=== PATIENT | female | born 1955 | race Caucasian/White ===

== ENCOUNTER 2018-02-11 07:29 | Day surgery (SDC) | payer BC ==
[~2018-02-11 07:29] MED LIST: ATOR20 PO
== END 2018-02-11 22:40 | disposition home or self-care (01) ==
LOC: MOI US 07:29
DX: C80.1 Malignant (primary) neoplasm, unspecified (principal)
CPT/HCPCS: 38505; 76942; 77065; 88305; 88341; 88342; A4648; G0279

== ENCOUNTER 2018-03-25 10:49 | Day surgery (SDC) | payer BC ==
[~2018-03-25] VITALS: Ht 152.4 cm; Wt 76.8 kg
[~2018-03-25 10:49] MED LIST changes: +ATOR40TA PO; +Aspirin EC81 MG PO; +Black Cohosh540 MG PO; +MULTI VITAMIN1 EACH PO; +VITAMIN D31000 UNI1 PO
--- NOTE | 2018-03-25 11:54 | NUR ---
03/25/18 1154 Ricardo Whiting 1ST IV ATTEMPT IN LW UNSUCCESSFUL, DEE 2ND IV ATTEMPT IN LH SUCCESSFUL, DEE
--- NOTE | 2018-03-25 13:06 | NUR ---
03/25/18 1305 Felisha Weir PREP: RIGHT AND LEFT MID ABDOMEN TO CHIN, RIGHT AND LEFT AXILLA, RIGHT ARM, HAND.
--- NOTE | 2018-03-25 17:30 | NUR ---
03/25/18 1730 Gisele Pérez PT RESTING COMFORTABLY, DENIES PAIN OR NAUSEA. VSS. SATS 90'S UNTIL PT DOZES OFF, THEN DOWN IN THE HIGH 80'S. INCENTIVE SPIROMETER TEACHING DONE WITH PT DOING A GOOD RETURN DEMO AND SATS BACK UP IN THE MID 90'S. DRESSING CDI, AND DAUGHTER AT BEDSIDE ALONG WITH SISTER AND MOTHER.
== END 2018-03-25 18:00 | disposition home or self-care (01) ==
LOC: ORSCSDS 10:49
PROVIDERS: Surgery
PROC: 0HTT0ZZ Resection of Right Breast, Open Approach (ICD-10-PCS; principal; 2018-03-25 12:00)
PROC: 0HTU0ZZ Resection of Left Breast, Open Approach (ICD-10-PCS; principal; 2018-03-25 12:00)
PROC: 07B50ZX Excision of Right Axillary Lymphatic, Open Approach, Diagnostic (ICD-10-PCS; principal; 2018-03-25 12:00)
PROC: 05HN33Z Insertion of Infusion Device into Left Internal Jugular Vein, Percutaneous Approach (ICD-10-PCS; principal; 2018-03-25 12:00)
PROC: B5141ZA Fluoroscopy of Left Jugular Veins using Low Osmolar Contrast, Guidance (ICD-10-PCS; principal; 2018-03-25 12:00)
DX: C77.3 Secondary and unspecified malignant neoplasm of axilla and upper limb lymph nodes (principal); I10 Essential (primary) hypertension; E78.5 Hyperlipidemia, unspecified; E66.9 Obesity, unspecified; Z68.33 Body mass index [BMI] 33.0-33.9, adult; Z79.899 Other long term (current) drug therapy; Z79.82 Long term (current) use of aspirin
CPT/HCPCS: 77001; 88307; 88360; C1788; J0690; J1100; J1642; J1885; J2250; J2405; J3010

== ENCOUNTER 2018-04-03 16:18 | Observation (INO) | payer BC ==
[~2018-04-03] VITALS: Ht 154.9 cm; Wt 73.4 kg
--- NOTE | 2018-04-03 17:15 | NUR ---
pt arrived to unit, direct admit, via wheelchair, vss, oriented to room. pt a/0 x 4, pleasant/cooperative.
--- NOTE | 2018-04-03 17:45 | NUR ---
2 RNs unable to insert peripheral IV. PCU charge Alana to attempt peripheral with ultrasound.
--- NOTE | 2018-04-03 18:10 | NUR ---
lab unable to draw blood for cbc/bmp
--- NOTE | 2018-04-03 18:15 | NUR ---
PCU charge entry specialist Nicole will attempt insertion of power glide following giving report to night shift supervisor PCU charge
[2018-04-03 19:40] LABS: BASOPHILS ABSOLUTE AUTO 0.02 K/mm3 (0.00-0.23); BASOPHILS PERCENT AUTO 0 % (0-2); EOSINOPHILS ABSOLUTE AUTO 0.11 K/mm3 (0.00-0.68); EOSINOPHILS PERCENT AUTO 1 % (0-6); Hematocrit 35.4 % (33.0-51.0); Hemoglobin 11.5 g/dL (11.5-16.0); IMMATURE GRAN ABSOLUTE AUTO 0.06 K/mm3 (0.00-0.10); IMMATURE GRAN PERCENT AUTO 0 % (0-1); LYMPHOCYTES ABSOLUTE AUTO 1.84 K/mm3 (0.84-5.20); LYMPHOCYTES PERCENT AUTO 13 % (21-46); MONOCYTES PERCENT AUTO 11 % (4-13); Mean Corpuscular HGB 29.4 pg (26.0-34.0); Mean Corpuscular HGB Conc 32.5 g/dL (31.5-36.5); Mean Corpuscular Volume 91 fL (80-100); Mean Platelet Volume 10.3 fL (9.1-12.4); NEUTROPHILS ABSOLUTE AUTO 10.82 K/mm3 (1.96-9.15); NEUTROPHILS PERCENT AUTO 75 % (41-73); Platelet Count 208 K/mm3 (150-400); RDW Coefficient Variation 13.4 % (11.7-14.2); RDW Standard Deviation 44.5 fL (35.1-46.3); Red Blood Cell Count 3.91 M/mm3 (3.80-5.20); White Blood Cell Count 14.35 K/mm3 (4.00-11.30)
[2018-04-03 20:01] LABS: Anion Gap 8 mmol/L (6-16); Blood Urea Nitrogen 8 mg/dL (8-24); Bun/Creatinine Ratio 18.6 (12.0-20.0); CO2, Blood 26 mmol/L (21-32); Calcium, Blood 8.5 mg/dL (8.5-10.1); Chloride, Blood 100 mmol/L (98-108); Creatinine, Blood 0.43 mg/dL (0.40-1.00); Glomerular Filtration Rate >60 (60-); Glucose, Blood 95 mg/dL (70-99); Potassium, Blood 3.6 mmol/L (3.5-5.5); Sodium, Blood 134 mmol/L (136-145)
--- NOTE | 2018-04-04 06:58 | NUR ---
LYING IN HIGH FOWLERS WITH EYES CLOSED. RESTED WELL, TOLERATED IV ABX GIVEN WITHOUT ISSUES. DENIES PAIN, DISCOMFORT, OR FURTHER NEEDS AT THIS TIME. SAFETY MEASURES IN PLACE. WILL CONTINUE TO MONITOR.
[2018-04-04 11:30] LABS: BASOPHILS ABSOLUTE AUTO 0.03 K/mm3 (0.00-0.23); BASOPHILS PERCENT AUTO 0 % (0-2); EOSINOPHILS ABSOLUTE AUTO 0.22 K/mm3 (0.00-0.68); EOSINOPHILS PERCENT AUTO 2 % (0-6); Hematocrit 32.2 % (33.0-51.0); Hemoglobin 10.4 g/dL (11.5-16.0); IMMATURE GRAN ABSOLUTE AUTO 0.04 K/mm3 (0.00-0.10); IMMATURE GRAN PERCENT AUTO 0 % (0-1); LYMPHOCYTES ABSOLUTE AUTO 1.29 K/mm3 (0.84-5.20); LYMPHOCYTES PERCENT AUTO 13 % (21-46); MONOCYTES ABSOLUTE AUTO 1.12 K/mm3 (0.16-1.47); MONOCYTES PERCENT AUTO 12 % (4-13); Mean Corpuscular HGB 29.5 pg (26.0-34.0); Mean Corpuscular HGB Conc 32.3 g/dL (31.5-36.5); Mean Corpuscular Volume 91 fL (80-100); Mean Platelet Volume 10.3 fL (9.1-12.4); NEUTROPHILS PERCENT AUTO 72 % (41-73); Platelet Count 193 K/mm3 (150-400); RDW Coefficient Variation 13.6 % (11.7-14.2); RDW Standard Deviation 45.6 fL (35.1-46.3); Red Blood Cell Count 3.53 M/mm3 (3.80-5.20)
[2018-04-05 05:10] LABS: BASOPHILS ABSOLUTE AUTO 0.02 K/mm3 (0.00-0.23); BASOPHILS PERCENT AUTO 0 % (0-2); EOSINOPHILS ABSOLUTE AUTO 0.21 K/mm3 (0.00-0.68); EOSINOPHILS PERCENT AUTO 3 % (0-6); Hematocrit 32.3 % (33.0-51.0); Hemoglobin 10.1 g/dL (11.5-16.0); IMMATURE GRAN ABSOLUTE AUTO 0.02 K/mm3 (0.00-0.10); IMMATURE GRAN PERCENT AUTO 0 % (0-1); LYMPHOCYTES ABSOLUTE AUTO 1.25 K/mm3 (0.84-5.20); LYMPHOCYTES PERCENT AUTO 17 % (21-46); MONOCYTES ABSOLUTE AUTO 0.77 K/mm3 (0.16-1.47); MONOCYTES PERCENT AUTO 10 % (4-13); Mean Corpuscular HGB 29.1 pg (26.0-34.0); Mean Corpuscular HGB Conc 31.3 g/dL (31.5-36.5); Mean Corpuscular Volume 93 fL (80-100); Mean Platelet Volume 11.4 fL (9.1-12.4); NEUTROPHILS ABSOLUTE AUTO 5.17 K/mm3 (1.96-9.15); NEUTROPHILS PERCENT AUTO 70 % (41-73); Platelet Count 192 K/mm3 (150-400); RDW Coefficient Variation 14.3 % (11.7-14.2); RDW Standard Deviation 47.7 fL (35.1-46.3); Red Blood Cell Count 3.47 M/mm3 (3.80-5.20); White Blood Cell Count 7.44 K/mm3 (4.00-11.30)
[2018-04-05 06:14] LABS: Anion Gap 9 mmol/L (6-16); Blood Urea Nitrogen 9 mg/dL (8-24); Bun/Creatinine Ratio 18.4 (12.0-20.0); CO2, Blood 27 mmol/L (21-32); Calcium, Blood 8.8 mg/dL (8.5-10.1); Chloride, Blood 110 mmol/L (98-108); Creatinine, Blood 0.49 mg/dL (0.40-1.00); Glomerular Filtration Rate >60 (60-); Glucose, Blood 106 mg/dL (70-99)
[2018-04-05 06:19] LABS: Sodium, Blood 146 mmol/L (136-145)
--- NOTE | 2018-04-05 06:33 | NUR ---
LYING IN HIGH FOWLERS WITH EYES OPEN. RESTED WELL, TOLERATED IV ABX GIVEN WITHOUT ISSUES. HAS BEEN NPO [place]CE [place] FOR POSS WASHOUT BY DR. TAI TODAY. TRANSFERED TO ROOM 209, ALL BELONGINGS GATHERED AND TAKEN WITH PT. DENIES PAIN, DISCOMFORT, OR FURTHER NEEDS AT THIS TIME. SAFETY MEASURES IN PLACE. WILL CONTINUE TO MONITOR.
[2018-04-05 09:33] LABS: Vancomycin, Trough 4.9 ug/mL (5.0-10.0)
[2018-04-05] MEDS ORDERED: Bactrim Ds Tab1 EACH PO (15:37)
--- NOTE | 2018-04-05 16:00 | NUR ---
PATIENT D/C'D HOME AT THIS TIME WITH SPOUSE; BOTH STATE UNDERSTANDING OF WOUND CARE, HAND WASHING, LUCIA DRAIN CARE, ANTIBIOTIC REGIMEN, F/U APPT, ETC. NO C/O AT THIS TIME.
== END 2018-04-05 16:09 | disposition home or self-care (01) ==
LOC: SURS 16:18
PROVIDERS: Surgery; ADMIT Surgery
DX: T81.49XA Infection following a procedure, other surgical site, initial encounter (principal); C79.89 Secondary malignant neoplasm of other specified sites; C80.1 Malignant (primary) neoplasm, unspecified; Z90.13 Acquired absence of bilateral breasts and nipples; Z79.82 Long term (current) use of aspirin; Z79.899 Other long term (current) drug therapy
CPT/HCPCS: 36415; 80048; 80202; 85025; 87070; 87075; 87077; 87147; 87186; 87205; 96361; 96365; 96366; 96367; C1751; G0378; J0295; J3370; J7050; J7120

== ENCOUNTER 2019-03-21 07:57 | Day surgery (SDC) | payer BC ==
[~2019-03-21] VITALS: Ht 157.5 cm; Wt 79.7 kg
[~2019-03-21 07:57] MED LIST changes: +Bactrim Ds Tab1 EACH PO
--- NOTE | 2019-03-21 09:07 | NUR ---
03/21/19 0907 Leigh Nunez PATIENT HAD MEDIPORT ASCCESSED BY HER ONCOLOGIST.
--- NOTE | 2019-03-21 10:19 | NUR ---
03/21/19 Jerri Raymundo [facility] DEACCESSED THE MEDIPORT. MEDIPORT FLUSHED WITH 5ML OF HEPARIN PER ORDERS 100U/ML PER PROTOCOL. SITE COVERED WITH TAPE AND GAUZE.
== END 2019-03-21 10:22 | disposition home or self-care (01) ==
LOC: ORSCSDS 07:57
PROVIDERS: Surgery
PROC: 0DJD8ZZ Inspection of Lower Intestinal Tract, Via Natural or Artificial Opening Endoscopic (ICD-10-PCS; principal; 2019-03-21 09:15)
DX: C79.01 Secondary malignant neoplasm of right kidney and renal pelvis (principal); Z79.899 Other long term (current) drug therapy; K57.30 Diverticulosis of large intestine without perforation or abscess without bleeding; Z79.82 Long term (current) use of aspirin
CPT/HCPCS: J1642; J2704; J7120

== ENCOUNTER → 2024-01-18 | Outpatient (CLI) | payer MEDICARE | END | disposition home or self-care (01) | LOC: LAB 11:39 → LAB SHORT 11:39 | DX: N39.0 Urinary tract infection, site not specified (principal) | CPT/HCPCS: 87086; 87147 ==